=== PATIENT | male | born 1935 | race Asian ===

== ENCOUNTER 2021-02-14 13:45 | Emergency (ER) | payer MEDICARE ==
--- NOTE | 2021-02-14 14:25 | Emergency Department Report ---
ED General Adult HPI - General Chief complaint: Psych Stated complaint: EVALUATION Time Seen by Provider: 02/14/21 14:11 - History of Present Illness Initial comments: Patient was brought in by police for a hold. They believe the patient needed to be seen by psychiatry. He basically got into an argument with family. Apparently his family had administered medications to his who is in for him. He asked them not to administer medications that she did not need. The medications were administered anyway. They had a verbal altercation. This did not extend to physical violence. The patient allegedly stated "why not just put a gun in your hand." Police were called. The patient was brought here for threatening violence. Patient states that he was just upset that they were not going with his wishes and with holding medications that his did not apparently need. He states that he said something stupid. When this continued to escalate, he stated that he just walked away. Police ultimately arrived and threatened to either take him to intermediate or bring him here. Patient elected to come to the hospital. He is not suicidal or homicidal. He states that he is just very upset about family not following his wishes for his 's care. ED Review of Systems ROS: Stated complaint: EVALUATION Other details as noted in HPI Comment: All other systems reviewed and negative Constitutional: denies: fever Eyes: denies: eye pain ENT: denies: throat pain Respiratory: denies: cough Cardiovascular: denies: chest pain Endocrine: denies: unexplained weight loss Gastrointestinal: denies: abdominal pain Genitourinary: denies: dysuria Musculoskeletal: denies: back pain Skin: denies: rash Neurological: denies: headache Psychiatric: denies: auditory hallucinations, visual hallucinations, homicidal thoughts, suicidal thoughts Hematological/Lymphatic: denies: easy bruising ED Past Medical Hx - Past Medical History Hx Heart Attack/AMI: Yes Additional medical history: Cerebral bleed - Surgical History Hx Coronary Stent: Yes - Family History Family history: CAD/NE - Social History Smoking Status: Never Smoker ED Physical Exam - General Limitations: No Limitations, Other ( pulse ox was noted and normal) General appearance: alert, in no apparent distress, other ( interactive and appropriate) - Head Head exam: Present: atraumatic, normocephalic, normal inspection - Eye Eye exam: Present: normal appearance, PERRL, EOMI. Absent: scleral icterus - ENT ENT exam: Present: normal exam, normal orophraynx, mucous membranes moist, normal external ear exam - Neck Neck exam: Present: normal inspection. Absent: meningismus - Respiratory Respiratory exam: Present: normal lung sounds bilaterally. Absent: respiratory distress - Cardiovascular Cardiovascular Exam: Present: regular rate, normal rhythm - GI/Abdominal GI/Abdominal exam: Present: soft. Absent: tenderness - Extremities Exam Extremities exam: Present: normal capillary refill - Back Exam Back exam: Absent: CVA tenderness (R), CVA tenderness (L) - Neurological Exam Neurological exam: Present: alert, oriented X3, CN II-XII intact, normal gait. Absent: motor sensory deficit - Psychiatric Psychiatric exam: Present: normal affect, normal mood - Skin Skin exam: Present: warm, dry ED Course - Reevaluation(s) Reevaluation #1: 02/14/21 14:21 Patient was evaluated. He is not suicidal. Is not homicidal. He is awake and lucid. I do not believe he meets criteria for any type of psychiatric hold. Patient was discharged. ED Medical Decision Making - Medical Decision Making patient presented with police on a hold. Patient does not require any type of hold at this time. He is not suicidal. Is not homicidal. This is consistent with an anger reaction. Patient does not have any intent of harming anybody. He states that he does not actually own a gun other than a pellet gun. He states that that was verified by the police. Patient was subsequently discharged with out commitment from him that he will not make outlandish or outrageous statements. He will follow-up with his regular physician. Clinically, he is not intoxicated and does seem to be appropriate Critical Care Time: No Critical care attestation.: If time is entered above; I have spent that time in minutes in the direct care of this critically ill patient, excluding procedure time. ED Disposition Clinical Impression: Anger reaction Disposition: 01 HOME / SELF CARE / HOMELESS Is pt being admited?: No Condition: Stable Instructions: Managing Anger, Adult Additional Instructions: Drink plenty of water. Return for problems. See your regular doctor for recheck. Referrals: PRIMARY CARE, [Referring] - 3-5 Days OLIVER HAWKINS MD [Staff Physician] - 3-5 Days
[2021-02-14 14:43] VITALS: BP 190/110
== END 2021-02-14 15:00 | disposition home or self-care (01) ==
LOC: ED 13:45
DX: R45.4 Irritability and anger (principal); I61.9 Nontraumatic intracerebral hemorrhage, unspecified; Z98.890 Other specified postprocedural states
CPT/HCPCS: 99283